=== PATIENT | male | born 1955 | race African-American/Black ===

== ENCOUNTER → 2017-01-13 | Outpatient (CLI) | payer OTHER ==
--- NOTE | 2017-01-16 08:16 | RADIOLOGY REPORT (SQ) ---
EXAM DESCRIPTION: MRI RT LOWER JOINT WITHOUT COMPLETED DATE/TIME: 01/13/2017 7:11 pm REASON FOR STUDY: PAIN IN RIGHT KNEE M25.561 PAIN IN RIGHT KNEE COMPARISON: None. TECHNIQUE: Rightknee images acquired and stored on PACS. Multiplanar images include fat sensitive s equences as T1, water sensitive sequences as FST2 or STIR, cartilage sensitive sequences as FSPD, and gradient echo sequences. LIMITATIONS: Patient motion. FINDINGS: JOINT AND BURSAE: Joint effusion. BONE CORTEX AND MARROW: No alteration of signal to suggest marrow replacement. No worrisome bone lesi ons. No occult fracture. ACL: Increased signal, but intact. PCL: Intact. MCL: Intact. No periligamentous edema or fluid. LCL: Intact. No periligamentous edema or fluid. MEDIAL MENISCUS: Increased signal posterior horn extends to the articular surface in the axial plane. Tear extends to the body. LATERAL MENISCUS: Intact. MEDIAL COMPARTMENT: Thinning of the articular cartilage. Mild subchondral cyst formation femoral con dyle. LATERAL COMPARTMENT: Thinning of the articular cartilage. No large osteophytes or bone bruises. PATELLA: No chondromalacia. No subchondral cysts. Medial and lateral retinacula intact. EXTENSOR MECHANISM: Intact. Quadriceps and patella tendons normal. SOFT TISSUES: Subcutaneous edema anterior to the patellar tendon. No organized bursal fluid collecti on. OTHER: No other significant finding. IMPRESSION: 1. Horizontal tear posterior horn medial meniscus extending into the body. This is probably a bucket -handle variant. No displaced meniscal fragment. 2. ACL sprain. 3. Chondromalacia. Mild osteoarthritis medial compartment. 4. Joint effusion. TECHNICAL DOCUMENTATION: JOB ID: [id number]- All Rights Reserved
== END ==
LOC: RAD 18:23
PROVIDERS: ATTEND Physician Assistant
DX: M25.561 Pain in right knee (principal); M25.461 Effusion, right knee; M22.41 Chondromalacia patellae, right knee

== ENCOUNTER → 2017-02-02 | Outpatient (CLI) | payer OTHER ==
--- NOTE | 2017-02-03 08:59 | RADIOLOGY REPORT (SQ) ---
EXAM DESCRIPTION: HIPS BILATERAL COMPLETED DATE/TIME: 02/02/2017 5:22 pm REASON FOR STUDY: PAIN IN LEFT HIP,PAIN IN RIGHT HIP M25.551 PAIN IN RIGHT HIP M25.552 PAIN IN LEF T HIP COMPARISON: None. NUMBER OF VIEWS: Two views. TECHNIQUE: AP pelvis and additional frog-leg view of the right and left hip. LIMITATIONS: None. FINDINGS: There is joint space narrowing and subchondral cyst formation in both hips. Straightening of the contour of the right femoral neck which can be associated with femoroacetabular impingement. No erosions. SI joints are normal. IMPRESSION: Osteoarthritis. TECHNICAL DOCUMENTATION: JOB ID: [id number] [employer]- All Rights Reserved
== END ==
LOC: OD 17:00
PROVIDERS: ATTEND Family Medicine
DX: M25.551 Pain in right hip (principal); M25.552 Pain in left hip; M16.0 Bilateral primary osteoarthritis of hip
CPT/HCPCS: 73522

== ENCOUNTER → 2017-03-16 | Outpatient (CLI) | payer OTHER ==
--- NOTE | 2017-03-16 16:51 | RADIOLOGY REPORT (SQ) ---
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 CONTRAST TYPE AND DOSE: contrast/concentration: Isovue 370.00 mg/ml; Total Contrast Delivered: 100.0 ml; Total Saline Delivered: 72.0 ml RENAL FUNCTION: Creatinine 1.1 TECHNIQUE: CT scan of the chest performed using helical scanning technique with dynamic intravenous contrast injection. Images reviewed with lung, soft tissue and bone windows. Reconstructed coronal a nd sagittal MPR images reviewed. All images stored on PACS. CT scan of the abdomen and pelvis performed with intravenous and with oral contrastusing helical scan schuyler technique with dynamic intravenous contrast injection. Images reviewed with lung, soft tissue a nd bone windows. Reconstructed coronal and sagittal MPR images reviewed. Delayed images for evaluat ion of the urinary system also acquired and evaluated. All images stored on PACS. All CT scanners at this facility use dose modulation, iterative reconstruction, and/or weight based d osing when appropriate to reduce radiation dose to as low as reasonably achievable (ALARA). [facility]: Dose Right [facility]: CareDose [facility]: Dose Right [facility]: Teradose 4D [facility]: Smart mobli RADIATION DOSE: Up-to-date CT equipment and radiation dose reduction techniques were employed. CTDIv ol: 7.8 - 9.6 mGy. DLP: 1320 mGy-cm. . LIMITATIONS: None. FINDINGS: CHEST: LUNGS AND PLEURA: No opacities, nodules, masses. No pneumothorax. No effusions. HILAR AND MEDIASTINAL STRUCTURES: No identified masses or abnormal nodes. HEART AND VASCULAR STRUCTURES: No aneurysm or dissection. No central pulmonary emboli. No pericardi al effusion. HARDWARE: None. THYROID AND OTHER SOFT TISSUES: No masses. No adenopathy. BONES: No significant finding. Small foci of sclerosis in the bilateral ribs unchanged from 6. OTHER: No other significant finding. ABDOMEN AND PELVIS: LIVER: Normal size. No masses. No dilated ducts. SPLEEN: Normal size. No focal lesions. PANCREAS: No masses. No significant calcifications. No adjacent inflammation or peripancreatic fluid collections. Pancreatic duct not dilated. GALLBLADDER: No identified stones by CT criteria. No inflammatory changes to suggest cholecystitis. ADRENAL GLANDS: No significant masses or asymmetry. RIGHT KIDNEY AND URETER: No solid masses. No significant calcification. No hydronephrosis or hydroure ter. LEFT KIDNEY AND URETER: No solid masses. 8 mm cyst left mid pole kidney. No significant calcificati on. No hydronephrosis or hydroureter. AORTA AND VESSELS: No aneurysm. No dissection. Renal arteries, SMA, celiac without stenosis. RETROPERITONEUM: No retroperitoneal adenopathy, hemorrhage or masses. BOWEL AND PERITONEAL CAVITY: No masses or inflammatory changes. No free fluid or peritoneal masses. APPENDIX: Normal. ABDOMINAL WALL: No masses. No hernias. BONES: No significant or acute findings. Benign sclerosis in the left acetabular roof and right supe rior pubic ramus unchanged from 06/25/2015. PELVIS: No other significant finding. IMPRESSION: No CT findings worrisome for recurrent lymphoma over the chest abdomen or pelvis TECHNICAL DOCUMENTATION: JOB ID: [id number] Quality ID # [id number]: Final reports with documentation of one or more dose reduction techniques (e.g., Au tomated exposure control, adjustment of the mA and/or kV according to patient size, use of iterative reconstruction technique) 2010 [employer]- All Rights Reserved
== END ==
LOC: RAD 14:28
PROVIDERS: ATTEND Internal Medicine
DX: C83.34 Diffuse large B-cell lymphoma, lymph nodes of axilla and upper limb (principal)
CPT/HCPCS: 71260; 74177; 82565

== ENCOUNTER 2017-03-22 06:33 | Day surgery (SDC) | payer OTHER ==
--- NOTE | 2017-03-15 09:31 | RADIOLOGY REPORT (SQ) ---
EXAM DESCRIPTION: CHEST PA/LATERAL COMPLETED DATE/TIME: 03/15/2017 9:20 am REASON FOR STUDY: PRE OP COMPARISON: 2016 CT chest. TECHNIQUE: Frontal and lateral radiographic views of the chest acquired. NUMBER OF VIEWS: Two view. LIMITATIONS: None. FINDINGS: LUNGS AND PLEURA: No opacities, masses or pneumothorax. No pleural effusion. MEDIASTINUM AND HILAR STRUCTURES: No masses or contour abnormalities. HEART AND VASCULAR STRUCTURES: Heart normal size. No evidence for failure. BONES: No acute findings. HARDWARE: None in the chest. OTHER: No other significant finding. IMPRESSION: NO SIGNIFICANT RADIOGRAPHIC FINDING IN THE CHEST. TECHNICAL DOCUMENTATION: JOB ID: [id number] [employer]- All Rights Reserved
[2017-03-15 10:02] LABS: ABSOLUTE EOSINOPHILS # (AUTO) 0.2 10^3/uL (0.0-0.6); ABSOLUTE LYMPHOCYTES (AUTO) 1.5 10^3/uL (0.5-4.7); ABSOLUTE MONOCYTES (AUTO) 0.7 10^3/uL (0.1-1.4); EOSINOPHILS % (AUTO) 3.6 % (0-6); HEMATOCRIT 42.5 % (37.9-51.0); HGB HCT DIFFERENCE -0.5; LYMPHOCYTES % (AUTO) 34.4 % (13-45); MEAN CORPUSCULAR HEMOGLOBIN 27.3 pg (27.0-33.4); MEAN CORPUSCULAR HGB CONC 33.1 g/dL (32.0-36.0); MEAN CORPUSCULAR VOLUME 83 fl (80-97); MONOCYTES % (AUTO) 15.2 % (3-13); RED BLOOD COUNT 5.14 10^6/uL (4.35-5.55); RED CELL DISTRIBUTION WIDTH 14.2 % (11.5-14.0); SEGMENTED NEUTROPHILS % (AUTO) 45.8 % (42-78); WHITE BLOOD COUNT 4.3 10^3/uL (4.0-10.5)
[2017-03-15 10:07] LABS: APPEARANCE,URINE SLIGHTLY-CLOUDY; BILIRUBIN,URINE NEGATIVE (NEGATIVE); GLUCOSE, URINE NEGATIVE (NEGATIVE); KETONES,URINE NEGATIVE (NEGATIVE); LEUKOCYTE ESTERASE,URINE NEGATIVE (NEGATIVE); NITRITE,URINE NEGATIVE (NEGATIVE); PROTEIN,URINE NEGATIVE (NEGATIVE); URINE SPECIFIC GRAVITY 1.012; UROBILINOGEN,URINE NEGATIVE mg/dL (<2.0)
[2017-03-15 10:32] LABS: ANION GAP 10 (5-19); BLOOD UREA NITROGEN 22 mg/dL (7-20); CARBON DIOXIDE 29 mmol/L (22-30); CHLORIDE 99 mmol/L (98-107); CREATININE RESULT 1.09 mg/dL (0.52-1.25); GLUCOSE 103 mg/dL (75-110); POTASSIUM 5.1 mmol/L (3.6-5.0); SODIUM 138.1 mmol/L (137-145)
[~2017-03-22 06:33] MED LIST: CEFAZOLIN 2 GM/D5W RTU 2 GM/50 ML RTUPB IV PRN; LACTATED RINGERS 1000 ML IV PRN; LIDOCAINE 0.5% INJ-PF (5 MG/ML) 50 ML SDV SUBCUT PRN
[2017-03-22] MEDS ORDERED: BUPIVACAINE HCL 0.5 % INJ/PF 30 ML SDV ONE (07:06)
[2017-03-22] MEDS ORDERED: LIDOCAINE 1%/EPINEPHRINE INJ 20 ML VIAL ONE (07:06)
[2017-03-22] MEDS ORDERED: MIDAZOLAM 2 MG/2 ML INJ ONE (08:18)
[2017-03-22] MEDS ORDERED: ONDANSETRON HCL INJ/PF 4 MG/2 ML SDV ONE (08:18)
[2017-03-22] MEDS ORDERED: FENTANYL CITRATE INJ/PF 100 MCG/2 ML AMPUL ONE (08:18)
[2017-03-22] MEDS ORDERED: IBUPROFEN INJ 800 MG/8 ML VIAL IV ONE (08:18)
[2017-03-22] MEDS ORDERED: DEXAMETHASONE SOD PHOSPHATE INJ 4 MG/1 ML VIAL ONE (08:18)
[2017-03-22] MEDS ORDERED: PROPOFOL INJ 200 MG/20 ML VIAL IV ONE (08:18)
[2017-03-22] MEDS ORDERED: MORPHINE SULFATE 10 MG/ML INJ ONE (08:19)
[2017-03-22] MEDS ORDERED: PROMETHAZINE HCL INJ 25 MG/1 ML VIAL IV PRN ×2 (08:59)
[2017-03-22] MEDS ORDERED: FENTANYL CITRATE INJ/PF 100 MCG/2 ML AMPUL IV PRN ×3 (08:59)
[2017-03-22] MEDS ORDERED: MEPERIDINE HCL/PF INJ 25 MG/1 ML DISP.SYRIN IV PRN (08:59)
[2017-03-22] MEDS ORDERED: DIPHENHYDRAMINE HCL 50 MG/ML VIAL IV PRN (08:59)
[2017-03-22] MEDS ORDERED: MORPHINE SULFATE 10 MG/ML INJ IV PRN (08:59)
--- NOTE | 2017-03-22 09:22 | Operative Report ---
Operative Report DATE OF SURGERY: 03/22/17 PREOPERATIVE DIAGNOSIS: Right medial meniscal tear POSTOPERATIVE DIAGNOSIS: Right medial meniscal tear. Grade 1 chondral malacia medial compartment. Intact ACL. Grade I chondromalacia lateral compartment. Lateral meniscal tear. Grade 1-2 chondral malacia the patellofemoral compartment OPERATION: Arthroscopic right partial medial and lateral meniscectomy SURGEON: DAVID DE LA CRUZ ANESTHESIA: GA PROCEDURE: With the patient supine on the operating room table the right lower extremities prepped and draped in sterile fashion. The knee is insufflated with coverage of Marcaine, Xylocaine, and epinephrine. Subsequent medial lateral patella portals are created for the introduction of arthroscope and debridements mutation. Joint is examined in systematic fashion findings as above. Using combination basket Page, mechanical shaver, electric frequency ablation probe a partial medial meniscectomy was performed from approximately 3:00 to 12:00 on the face of the dial. A partial lateral meniscectomy performed from approximately 7:00 to 12:00 in the face of the dial. The joint is examined in systematic fashion findings changed. Instrumentation was removed. Holes were reapproximated with interrupted nylon. A sterile compressive dressing was applied and the patient returned to the PACU in satisfactory condition.
[2017-03-22] MEDS ORDERED: OXYCODONE HCL IR 5 MG TABLET PO PRN (09:32)
[2017-03-22] MEDS ORDERED: ONDANSETRON 4 MG TAB.RAPDIS SL PRN (09:32)
[2017-03-22 11:27] VITALS: BP 119/74
== END 2017-03-22 11:25 | disposition home or self-care (01) ==
LOC: OROUT 06:33
PROVIDERS: ATTEND Orthopaedic Surgery
PROC: 0SBC4ZZ Excision of Right Knee Joint, Percutaneous Endoscopic Approach (ICD-10-PCS; 2017-03-22)
PROC: 0SBC4ZZ Excision of Right Knee Joint, Percutaneous Endoscopic Approach (ICD-10-PCS; principal; 2017-03-22 08:45)
DX: M23.303 Other meniscus derangements, unspecified medial meniscus, right knee (principal); M23.300 Other meniscus derangements, unspecified lateral meniscus, right knee; M22.41 Chondromalacia patellae, right knee; E78.00 Pure hypercholesterolemia, unspecified; I10 Essential (primary) hypertension; C85.90 Non-Hodgkin lymphoma, unspecified, unspecified site; Z79.899 Other long term (current) drug therapy; Z79.1 Long term (current) use of non-steroidal anti-inflammatories (NSAID)
CPT/HCPCS: 36415 ×2; 82962; 84132; 85025; 80048; 81001; 71020; 29880; J2250; J1100; J3010; J3490; J2405; J2704; J0690; J1741; 1400; J2270

== ENCOUNTER → 2019-05-29 | Outpatient (CLI) | payer MEDICARE, OTHER ==
--- NOTE | 2019-05-29 22:34 | RADIOLOGY REPORT (SQ) ---
EXAM DESCRIPTION: RadLex: US EXTREMITY VEINS BILATERAL CLINICAL HISTORY: 63 years Male; SWELLING TECHNIQUE: Multiple grayscale sonographic images of both legs were obtained utilizing a high-frequency linear array transducer supplemented with color Doppler, compression and augmentation techniques. COMPARISON: None. FINDINGS: Right leg veins: Common femoral: normal Greater saphenous: normal upper Superficial femoral: normal mid Superficial femoral: normal lower Superficial femoral: normal Popliteal: normal Posterior Tibial: normal Left leg veins: Common femoral: normal Greater saphenous: normal upper Superficial femoral: normal mid Superficial femoral: normal lower Superficial femoral: normal Popliteal: normal Posterior Tibial: normal IMPRESSION: 1. No sonographic evidence for lower extremity deep venous thrombosis in either leg.
== END ==
LOC: SP 16:39
PROVIDERS: ATTEND Family Medicine
DX: R60.0 Localized edema (principal)
CPT/HCPCS: 93970

== ENCOUNTER → 2019-06-25 | Outpatient (CLI) | payer MEDICARE, OTHER ==
--- NOTE | 2019-06-25 17:46 | RADIOLOGY REPORT (SQ) ---
EXAM DESCRIPTION: CT ABD/PELVIS WITH IV ONLY COMPLETED DATE/TIME: 06/25/2019 1:39 pm REASON FOR STUDY: (R10.9)UNSPECIFIED ABDOMINAL PAIN R10.9 UNSPECIFIED ABDOMINAL PAIN COMPARISON: 03/16/2017. TECHNIQUE: CT scan of the abdomen and pelvis performed using helical scanning technique with dynamic intravenous contrast injection. No oral contrast. Images reviewed with lung, soft tissue, and bone windows. Reconstructed coronal and sagittal MPR images reviewed. Delayed images for evaluation of the urinary system also acquired. All images stored on PACS. All CT scanners at this facility use dose modulation, iterative reconstruction, and/or weight based d osing when appropriate to reduce radiation dose to as low as reasonably achievable (ALARA). [facility]: Dose Right [facility]: CareDose [facility]: Dose Right [facility]: Teradose 4D [facility]: [employer] CONTRAST TYPE AND DOSE: contrast/concentration: Isovue 350.00 mg/ml; Total Contrast Delivered: 100.0 ml; Total Saline Delivered: 52.8 ml RENAL FUNCTION: Creatinine 1.4. RADIATION DOSE: CT Rad equipment meets quality standard of care and radiation dose reduction techniq ues were employed. CTDIvol: 9.0 - 12.4 mGy. DLP: 1152 mGy-cm.. LIMITATIONS: None. FINDINGS: LOWER CHEST: No significant findings. No nodules or infiltrates. LIVER: Normal size. No masses. No dilated ducts. SPLEEN: Normal size. No focal lesions. PANCREAS: No masses. No significant calcifications. No adjacent inflammation or peripancreatic fluid collections. Pancreatic duct not dilated. GALLBLADDER: No identified stones by CT criteria. No inflammatory changes to suggest cholecystitis. ADRENAL GLANDS: No significant masses or asymmetry. RIGHT KIDNEY AND URETER: No solid masses. No significant calcifications. No hydronephrosis or hyd roureter. LEFT KIDNEY AND URETER: No solid masses. No significant calcifications. No hydronephrosis or hydr oureter. AORTA AND VESSELS: No aneurysm. No dissection. Renal arteries, SMA, celiac without stenosis. RETROPERITONEUM: No retroperitoneal adenopathy, hemorrhage or masses. BOWEL AND PERITONEAL CAVITY: No masses or inflammatory changes. No free fluid or peritoneal masses. APPENDIX: Normal. PELVIS: No mass. No free fluid. Normal bladder. ABDOMINAL WALL: No masses. No hernias. BONES: No significant or acute findings. OTHER: No other significant finding. IMPRESSION: NO SIGNIFICANT OR ACUTE FINDING IN THE ABDOMEN OR PELVIS ON CT SCAN WITH IV CONTRAST. TECHNICAL DOCUMENTATION: JOB ID: [id number] Quality ID # [id number]: Final reports with documentation of one or more dose reduction techniques (e.g., Au tomated exposure control, adjustment of the mA and/or kV according to patient size, use of iterative reconstruction technique) 2010 [employer]- All Rights Reserved Reading location - IP/workstation name: [email or web address]
== END ==
LOC: RAD 13:01
PROVIDERS: ATTEND Family Medicine
DX: R10.9 Unspecified abdominal pain (principal)
CPT/HCPCS: 74177; 82565

== ENCOUNTER → 2019-10-01 | Outpatient (CLI) | payer MEDICARE, OTHER ==
--- NOTE | 2019-10-01 11:04 | RADIOLOGY REPORT (SQ) ---
EXAM DESCRIPTION: HAND LEFT 3 VIEWS IMAGES COMPLETED DATE/TIME: 10/01/2019 10:47 am REASON FOR STUDY: INJURY OF LEFT HAND, INITIAL ENCOUNTER (S69.92XA) S69.92XA UNSP INJURY OF LEFT WR IST, HAND AND FINGER(S), INIT COMPARISON: None. EXAM PARAMETERS: NUMBER OF VIEWS: Three views. TECHNIQUE: AP, lateral and oblique radiographic images acquired of the left hand. LIMITATIONS: None. FINDINGS: MINERALIZATION: Normal. BONES: No acute fracture or dislocation. No worrisome bone lesions. JOINTS: No effusions. No dislocation. Flexion deformity at the 5th distal interphalangeal joint. S cattered degenerative changes small osteophytes and mild joint space loss. SOFT TISSUES: No soft tissue swelling. No foreign body. OTHER: No other significant finding. IMPRESSION: No evidence of fracture. Flexion deformity at the 5th distal interphalangeal joint sugg estive of tendinous injury (mallet finger). TECHNICAL DOCUMENTATION: JOB ID: [id number] 2010 [employer]- All Rights Reserved Reading location - IP/workstation name: [email or web address]
== END ==
LOC: RAD 10:25
PROVIDERS: ATTEND Family Medicine
DX: S69.92XA Unspecified injury of left wrist, hand and finger(s), initial encounter (principal); X58.XXXA Exposure to other specified factors, initial encounter; Y93.9 Activity, unspecified; Y92.9 Unspecified place or not applicable

== ENCOUNTER → 2020-07-02 | Outpatient (CLI) | payer MEDICARE, OTHER ==
--- OUTSIDE RECORDS SUMMARY | 2020-07-02 08:00 | XMS REPORT ---
:1955 [facility] Address [address] [address] Care Team Providers Name Role Phone Christina Ocasio Primary Care Physician Unavailable Allergies, Adverse Reactions, Alerts This patient has no known allergies or adverse reactions. Medications This patient has no known medications. Problems This patient has no known problems. Procedures This patient has no known procedures. Results This patient has no known results. Social History This patient has no known social history. Vital Signs This patient has no known vital signs.
--- NOTE | 2020-07-03 08:16 | XCELERA REPORT ---
[address] [address] Transthoracic Echocardiogram Report Name: PIETER HEATON Age: 65 yrs Gender: Male : 1955 Patient Status: Outpatient Patient Location: [facility] Study Date: 07/02/2020 08:10 AM Height: 70 in Weight: 220 lb BSA: 2.2 m2 Reason For Study: EDEMA Ordering Physician: SHERRELL ANDRADE Performed By: Bib Amador Interpretation Summary Suboptimal study. No biplane LVEF calculation by voip network technician. No post pericardial effusion.. Normal aortic root, mild calcification. Nonstenotic calcific aortic valvular disease with 3 cusps, with trace/mild AR, no LV enlargement. Mild mitral annular calcification.. No MS, No MVP.. Mild MR with normal LA size.. No LVH (IVS/PW both 10 mm) . Normal LVEF (no biplane calculated) with stage 1 LVDD. Segmental wall motion analysis = hypokinetic anteroseptal wall, otherwise normal. No LV enlargement (LVESD 27mm). Tricuspid valve is normal, Mild TV regurgitation.. trace WI. RA and RV normal size.. NOpulmonary Hypertension, RVSP = 20 mm Hg. TAPSE appears normal. Redundant atrial septum. Normal IVC. Summary = Mild calcified aortic root. 3 cusps, trace/mild AR with no LV enlargement. Mild MR with no MS, no LA enlargement. No LVH , normal LVEF (visual) no enlargement of LV, with stage I LV Diastolic Dysfunction. MIld anteroseptal hypokinesis, See pictorals for wall motion. Normal R heart, RVSP 20 mm Hg. Trace TR. Redundant atrial septum, no L-->R shunt. No WI. Normal IVC. Dr Enrique ePrez. MMode/2D Measurements & Calculations RVDd: 3.3 cm LVIDd: 4.2 cm FS: 27.7 % Ao root diam: 3.1 cm IVSd: 1.00 cm LVIDs: 3.0 cm EDV(Teich): 76.7 ml LVPWd: 0.99 cm ESV(Teich): 35.1 ml Ao root area: 7.6 cm2 LA dimension: 4.7 cm EF(Teich): 54.2 % LVOT diam: 2.0 cm LVOT area: 3.0 cm2 Doppler Measurements & Calculations MV E max kalyan: MV P1/2t max kalyan: Ao V2 max: LV V1 max P.5 cm/sec 78.4 cm/sec 109.8 cm/sec 4.6 mmHg MV A max kalyan: MV P1/2t: 66.3 msec Ao max PG: LV V1 max: 92.7 cm/sec MVA(P1/2t): 3.3 cm2 4.8 mmHg 107.0 cm/sec MV E/A: 0.87 MV dec slope: GABRIELA(V,D): 2.9 cm2 346.3 cm/sec2 MV dec time: 0.20 sec PA V2 max: PI end-d kalyan: TR max kalyan: MV P1/2t-pr_phl: 75.3 cm/sec 119.0 cm/sec 206.8 cm/sec 66.3 msec PA max PG: TR max P.3 mmHg 17.1 mmHg I WMSI = 1.06 % Normal = 94 Segments Size X - Cannot 2 - 4 - 1-2 small Interpret 1 - Normal Hypokinetic 3 - AkineticDyskinetic 3-5 moderate 5 - 6-14 large Aneurysmal 15-16 diffuse : SHERRELL ANDRADE Andre
== END ==
LOC: SP 07:58
PROVIDERS: ATTEND Family Medicine
DX: R60.0 Localized edema (principal)
CPT/HCPCS: 93306